=== PATIENT | female | born 1970 | race Caucasian/White ===

== ENCOUNTER → 2017-02-15 | Outpatient (CLI) | payer BC | LOC: WI 08:21 | PROVIDERS: ATTEND Advanced Practice Midwife | DX: N64.4 Mastodynia (principal) | CPT/HCPCS: 76642; G0204; 77066 ==

== ENCOUNTER 2017-05-05 17:35 | Emergency (ER) | payer BC ==
[2017-05-05] MEDS ORDERED: ASPIRIN 81 MG TABLET, CHEWABLE PO ONE (17:57)
--- NOTE | 2017-05-05 17:58 | ER Document Report ---
ED Medical Screen (RME) - General Chief Complaint: Chest Pain > 30 Stated Complaint: CHEST PAIN Time Seen by Provider: 05/05/17 17:56 Notes: The patient is a 47-year-old female, past medical history Tanika's, thyroidectomy, hypertension, hyperlipidemia, presents after she was walking around the mall ~2 shours ago and noticed left upper chest pressure. She felt worsening pain and she was taking a deep breath. Never had this before. Pain has subsided now. PE: Anxious, RRR, CTAB, strong distal pulses I have greeted and performed a rapid initial assessment of this patient. A comprehensive ED assessment and evaluation of the patient, analysis of test results and completion of the medical decision making process will be conducted by additional ED providers. TRAVEL OUTSIDE OF THE [place] IN LAST 30 DAYS: No - Related Data Allergies/Adverse Reactions: nitrofurantoin [From Macrobid] Allergy (Severe, Verified 05/05/17 17:52) Edema nitrofurantoin macrocrystalline [From Macrobid] Allergy (Severe, Verified 17:52) Edema sulfamethoxazole [From Bactrim] Allergy (Severe, Verified 05/05/17 17:52) Edema trimethoprim [From Bactrim] Allergy (Severe, Verified 05/05/17 17:52) Edema Past Medical History - Past Medical History Cardiac Medical History: Reports: Hx Hypertension Pulmonary Medical History: Reports: Hx Pneumonia Denies: Hx Tuberculosis Neurological Medical History: Reports: Hx Migraine Endocrine Medical History: Reports: Hx Hypothyroidism Renal/ Medical History: Denies: Hx Peritoneal Dialysis Musculoskeltal Medical History: 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 Psychiatric Medical History: Reports: Hx Anxiety, Hx Depression Past Surgical History: Reports: Hx Breast Surgery - reduction, Hx Section - x 2, Hx Hysterectomy, Hx Thyroid Surgery - thyroidectomy - Immunizations Immunizations up to date: Yes Hx Diphtheria, Pertussis, Tetanus Vaccination: Yes Physical Exam - Vital signs Vitals: Temp Pulse Resp BP Pulse Ox 98.2 F 87 16 137/95 H 100 05/05/17 17:37 05/05/17 17:37 05/05/17 17:37 05/05/17 17:37 05/05/17 17:37 Course - Vital Signs Vital signs: Temp Pulse Resp BP Pulse Ox 98.2 F 87 16 137/95 H 100 05/05/17 17:37 05/05/17 17:37 05/05/17 17:37 05/05/17 17:37 05/05/17 17:37
[2017-05-05 18:13] LABS: ABSOLUTE BASOPHILS # (AUTO) 0.1 10^3/uL (0.0-0.2); ABSOLUTE EOSINOPHILS # (AUTO) 0.1 10^3/uL (0.0-0.6); ABSOLUTE LYMPHOCYTES (AUTO) 4.1 10^3/uL (0.5-4.7); ABSOLUTE MONOCYTES (AUTO) 0.6 10^3/uL (0.1-1.4); ABSOLUTE NEUT (AUTO) 5.3 10^3/uL (1.7-8.2); BASOPHILS % (AUTO) 0.8 % (0-2); EOSINOPHILS % (AUTO) 0.6 % (0-6); HEMATOCRIT 44.5 % (36.0-47.0); HEMOGLOBIN 15.2 g/dL (12.0-15.5); HGB HCT DIFFERENCE 1.1; LYMPHOCYTES % (AUTO) 40.6 % (13-45); MEAN CORPUSCULAR HEMOGLOBIN 28.3 pg (27.0-33.4); MEAN CORPUSCULAR HGB CONC 34.1 g/dL (32.0-36.0); MEAN CORPUSCULAR VOLUME 83 fl (80-97); MONOCYTES % (AUTO) 5.9 % (3-13); RED BLOOD COUNT 5.36 10^6/uL (3.72-5.28); RED CELL DISTRIBUTION WIDTH 13.2 % (11.5-14.0); SEGMENTED NEUTROPHILS % (AUTO) 52.1 % (42-78); WHITE BLOOD COUNT 10.2 10^3/uL (4.0-10.5)
--- NOTE | 2017-05-05 18:34 | ER Document Report ---
ED Cardiac - General Mode of Arrival: Ambulatory Information source: Patient TRAVEL OUTSIDE OF THE [place] IN LAST 30 DAYS: No - HPI Patient complains to provider of: Chest pain Associated symptoms: Other - See above <ADITHYA MACDONALD - Last Filed: 05/05/17 18:41> <EDGAR QUINTANA - Last Filed: 05/05/17 22:10> - General Chief Complaint: Chest Pain > 30 Stated Complaint: CHEST PAIN Time Seen by Provider: 05/05/17 17:56 Notes: Patient is a 47 year old female, with a past medical history including HTN and thyroidectomy, who presents to the emergency department complaining of chest pain onset a couple of hours ago. Patient states that the chest pain came when she breathed in and lasted for a couple of hours and stopped just before arrival. Patient states that she has been under a lot of stress recently with her family and her health. Patient denies eating just before the pain started. Patient reports she saw her PCP 2 weeks ago for blood work and her thyroid levels are normal. PCP: Marry (ADITHYA MACDONALD) - Related Data Allergies/Adverse Reactions: nitrofurantoin [From Macrobid] Allergy (Severe, Verified 05/05/17 17:52) Edema nitrofurantoin macrocrystalline [From Macrobid] Allergy (Severe, Verified 17:52) Edema sulfamethoxazole [From Bactrim] Allergy (Severe, Verified 05/05/17 17:52) Edema trimethoprim [From Bactrim] Allergy (Severe, Verified 05/05/17 17:52) Edema Past Medical History - General Information source: Patient - Social History Smoking Status: Never Smoker Frequency of alcohol use: None Family History: Reviewed & Not Pertinent, Arthritis, CAD, CVA, Hyperlipidemia, Hypertension, Thyroid Disfunction Patient has suicidal ideation: No Patient has homicidal ideation: No - Past Medical History Cardiac Medical History: Reports: Hx Hypertension Pulmonary Medical History: Reports: Hx Pneumonia Neurological Medical History: Reports: Hx Migraine Endocrine Medical History: Reports: Hx Hypothyroidism Musculoskeltal Medical History: 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 Psychiatric Medical History: Reports: Hx Anxiety, Hx Depression Past Surgical History: Reports: Hx Breast Surgery - reduction, Hx Section - x 2, Hx Hysterectomy, Hx Thyroid Surgery - thyroidectomy - Immunizations Immunizations up to date: Yes Hx Diphtheria, Pertussis, Tetanus Vaccination: Yes <ADITHYA MACDONALD - Last Filed: 05/05/17 18:41> Review of Systems - Review of Systems Constitutional: No symptoms reported EENT: No symptoms reported Cardiovascular: See HPI, Chest pain Respiratory: No symptoms reported Gastrointestinal: No symptoms reported Genitourinary: No symptoms reported Female Genitourinary: No symptoms reported Musculoskeletal: No symptoms reported Skin: No symptoms reported Hematologic/Lymphatic: No symptoms reported Neurological/Psychological: No symptoms reported -: Yes All other systems reviewed and negative <MACDONALDDIANAADITHYA - Last Filed: 05/05/17 18:41> Physical Exam - Vital signs Interpretation: Normal - General General appearance: Appears well, Alert - HEENT Head: Normocephalic, Atraumatic - Respiratory Respiratory status: No respiratory distress Chest status: Nontender Breath sounds: Normal Chest palpation: Normal - Cardiovascular Rhythm: Regular Heart sounds: Normal auscultation Murmur: No - Abdominal Inspection: Normal Distension: No distension Bowel sounds: Normal Tenderness: Nontender Organomegaly: No organomegaly - Extremities General upper extremity: Normal inspection General lower extremity: Normal inspection - Neurological Neuro grossly intact: Yes Cognition: Normal Orientation: AAOx4 Dougherty Coma Scale Eye Opening: Spontaneous Jessika Coma Scale Verbal: Oriented Jessika Coma Scale Motor: Obeys Commands Dougherty Coma Scale Total: 15 Speech: Normal - Psychological Associated symptoms: Normal affect, Normal mood - Skin Skin Temperature: Warm Skin Moisture: Dry Skin Color: Normal <ADITHYA MACDONALD - Last Filed: 05/05/17 18:41> Course - Laboratory Result Diagrams: 05/05/17 18:05 05/05/17 18:05 <MACDONALDADITHYA - Last Filed: 05/05/17 18:41> - Laboratory Result Diagrams: 05/05/17 18:05 05/05/17 18:05 - Diagnostic Test Radiology reviewed: Reports reviewed - EKG Interpretation by Me EKG shows normal: Sinus rhythm Rate: Normal Rhythm: NSR <EDGAR QUINTANA - Last Filed: 05/05/17 22:10> - Re-evaluation Re-evalutation: 05/05/17 22:09 He has had no further pain in the emergency department. EKG within normal limits. No findings on chest x-ray. Troponin negative 2. Patient feels well. She will be discharged home and is to follow-up with her doctor. Patient had her thyroid tested recently. Understands and agrees with plan. Stable for discharge. (EDGAR QUINTANA) - Vital Signs Vital signs: Temp Pulse Resp BP Pulse Ox 98.2 F 87 18 126/73 H 100 05/05/17 17:37 05/05/17 17:37 05/05/17 21:01 05/05/17 21:01 05/05/17 21:01 - Laboratory Laboratory results interpreted by me: 05/05/17 05/05/17 18:05 18:05 RBC 5.36 H Creatine Kinase 190 H Discharge <ADITHYA MACDONALD - Last Filed: 05/05/17 18:41> <EDGAR QUINTANA - Last Filed: 05/05/17 22:10> - Discharge Clinical Impression: Atypical chest pain Condition: Stable Disposition: HOME, SELF-CARE Instructions: Chest Pain of Unclear Cause ([facility]) Forms: Return to Work Referrals: JAGJIT HOOD, CULINARY INSTRUCTOR-C [Primary Care Provider] - Follow up in 3-5 days Scribe Attestation: 05/05/17 22:10 I personally performed the services described in the documentation, reviewed and edited the documentation which was dictated to the scribe in my presence, and it accurately records my words and actions. (EDGAR QUINTANA) Scribe Documentation - Scribe Written by Coy:: coy Nolasco, 05/05/17, 1842 acting as scribe for :: Joon <ADITHYA MACDONALD - Last Filed: 05/05/17 18:41>
[2017-05-05 18:38] LABS: ALANINE AMINOTRANSFERASE 36 U/L (9-52); ALBUMIN 4.4 g/dL (3.5-5.0); ALKALINE PHOSPHATASE 60 U/L (38-126); ANION GAP 10 (5-19); ASPARTATE AMINO TRANSFERASE 26 U/L (14-36); BILIRUBIN,DIRECT 0.2 mg/dL (0.0-0.4); BILIRUBIN,TOTAL 0.5 mg/dL (0.2-1.3); BLOOD UREA NITROGEN 14 mg/dL (7-20); CALCIUM 9.9 mg/dL (8.4-10.2); CARBON DIOXIDE 29 mmol/L (22-30); CHLORIDE 99 mmol/L (98-107); CREATINE KINASE 190 U/L (30-135); GLUCOSE 93 mg/dL (75-110); POTASSIUM 3.7 mmol/L (3.6-5.0); SODIUM 138.3 mmol/L (137-145); TOTAL PROTEIN 7.3 g/dL (6.3-8.2)
--- NOTE | 2017-05-05 18:48 | RADIOLOGY REPORT (SQ) ---
EXAM DESCRIPTION: CHEST PA/LAT COMPLETED DATE/TIME: 05/05/2017 6:15 pm REASON FOR STUDY: chest pain COMPARISON: 11/29/2014 EXAM PARAMETERS: NUMBER OF VIEWS: two views TECHNIQUE: Digital Frontal and Lateral radiographic views of the chest acquired. RADIATION DOSE: NA LIMITATIONS: none FINDINGS: LUNGS AND PLEURA: No opacities, masses or pneumothorax. No pleural effusion. MEDIASTINUM AND HILAR STRUCTURES: No masses or contour abnormalities. HEART AND VASCULAR STRUCTURES: Heart normal size. No evidence for failure. BONES: No acute findings. HARDWARE: None in the chest. OTHER: No other significant finding. IMPRESSION: NO SIGNIFICANT RADIOGRAPHIC FINDING IN THE CHEST. TECHNICAL DOCUMENTATION: JOB ID: [id number] [employer]- All Rights Reserved
[2017-05-05 18:50] LABS: TROPONIN I < 0.012 ng/mL
[2017-05-05 21:37] VITALS: BP 126/73
--- NOTE | 2017-05-06 07:15 | EKG REPORT ---
SEVERITY:- NORMAL ECG - SINUS RHYTHM : Confirmed by: Luanne Burris MD 06-May-2017 07:14:54
== END 2017-05-05 21:37 | disposition home or self-care (01) ==
LOC: ER 17:35
DX: R07.89 Other chest pain (principal); I10 Essential (primary) hypertension; E89.0 Postprocedural hypothyroidism; Z88.1 Allergy status to other antibiotic agents; Z87.01 Personal history of pneumonia (recurrent); Z82.49 Family history of ischemic heart disease and other diseases of the circulatory system
CPT/HCPCS: 36415; 71020; 80053; 82550; 83880; 84484; 85025; 93005; 93010; 99285

== ENCOUNTER 2017-07-23 19:15 | Emergency (ER) | payer BC ==
[2017-07-23] MEDS ORDERED: DIPHENHYDRAMINE HCL 50 MG CAPSULE PO ONE (19:48)
[2017-07-23] MEDS ORDERED: FAMOTIDINE 20 MG TABLET PO ONE (19:48)
[2017-07-23] MEDS ORDERED: PREDNISONE 20 MG TABLET PO ONE (19:48)
--- NOTE | 2017-07-23 19:49 | ER Document Report ---
ED General - General Chief Complaint: Allergic Reaction Stated Complaint: DIFFICULTY BREATHING Time Seen by Provider: 07/23/17 19:48 Mode of Arrival: Ambulatory Information source: Patient Notes: 47-year-old female presents with complaints of allergic reaction. Patient notes she ate cherries 1 hour ago noted a rash on her right forearm and has had some difficulty breathing since. Patient denies any difficulty swallowing has had allergic reaction of the past and admits to a history of anxiety TRAVEL OUTSIDE OF THE [place] IN LAST 30 DAYS: No - HPI Onset: Just prior to arrival Onset/Duration: Sudden Quality of pain: No pain Severity: Mild Pain Level: Denies Associated symptoms: Other Exacerbated by: Food Relieved by: Denies Similar symptoms previously: Yes Recently seen / treated by doctor: No - Related Data Allergies/Adverse Reactions: nitrofurantoin [From Macrobid] Allergy (Severe, Verified 05/05/17 17:52) Edema nitrofurantoin macrocrystalline [From Macrobid] Allergy (Severe, Verified 17:52) Edema sulfamethoxazole [From Bactrim] Allergy (Severe, Verified 05/05/17 17:52) Edema trimethoprim [From Bactrim] Allergy (Severe, Verified 05/05/17 17:52) Edema Past Medical History - Social History Smoking Status: Never Smoker Cigarette use (# per day): No Chew tobacco use (# tins/day): No Smoking Education Provided: No Family History: Reviewed & Not Pertinent, Arthritis, CAD, CVA, Hyperlipidemia, Hypertension, Thyroid Disfunction Patient has suicidal ideation: No Patient has homicidal ideation: No - Past Medical History Cardiac Medical History: Reports: Hx Hypertension Pulmonary Medical History: Reports: Hx Pneumonia Denies: Hx Tuberculosis Neurological Medical History: Reports: Hx Migraine Endocrine Medical History: Reports: Hx Hypothyroidism Renal/ Medical History: Denies: Hx Peritoneal Dialysis Musculoskeltal Medical History: 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 Denies recent illness. EENT: Admits to difficulty breathing CARDIOVASCULAR: Denies chest pain. Denies palpitations or racing or irregular heart beat. Denies ankle edema. RESPIRATORY: Denies cough, cold, or chest congestion. Denies shortness of breath, difficulty breathing, or wheezing. GASTROINTESTINAL: Denies abdominal pain or distention. Denies nausea, vomiting , or diarrhea. Denies blood in vomitus, stools, or per rectum. Denies black, tarry stools. Denies constipation. GENITOURINARY: Denies difficulty urinating, painful urination, burning, frequency, blood in urine, or discharge. FEMALE GENITOURINARY: Denies vaginal bleeding, heavy or abnormal periods, irregular periods. Denies vaginal discharge or odor. MUSCULOSKELETAL: Denies back or neck pain or stiffness. Denies joint pain or swelling. SKIN: Admits to rash HEMATOLOGIC : Denies easy bruising or bleeding. LYMPHATIC: Denies swollen, enlarged glands. NEUROLOGICAL: Denies confusion or altered mental status. Denies passing out or loss of consciousness. Denies dizziness or lightheadedness. Denies headache. Denies weakness or paralysis or loss of use of either side. Denies problems with gait or speech. Denies sensory loss, numbness, or tingling. Denies seizures. PSYCHIATRIC: Denies anxiety or stress. Denies depression, suicidal ideation, or homicidal ideation. ALL OTHER SYSTEMS REVIEWED AND NEGATIVE. PHYSICAL EXAMINATION: GENERAL: Well-appearing, well-nourished and in no acute distress. HEAD: Atraumatic, normocephalic. EYES: Pupils equal round and reactive to light, extraocular movements intact, conjunctiva are normal. ENT: Nares patent, oropharynx clear without exudates. Moist mucous membranes. NECK: Normal range of motion, supple without lymphadenopathy LUNGS: Breath sounds clear to auscultation bilaterally and equal. No wheezes rales or rhonchi. HEART: Regular rate and rhythm without murmurs ABDOMEN: Soft, nontender, nondistended abdomen. No guarding, no rebound. No masses appreciated. Female : deferred Musculoskeletal: Normal range of motion, no pitting or edema. No cyanosis. NEUROLOGICAL: Cranial nerves grossly intact. Normal speech, normal gait. Normal sensory, motor exams PSYCH: Normal mood, normal affect. SKIN: Generalized urticarial rash noted on right forearm Dictation was performed using [employer] recognition software Physical Exam - Vital signs Vitals: Temp Pulse Resp BP Pulse Ox 97.8 F 107 H 20 143/82 H 98 07/23/17 19:21 07/23/17 19:21 07/23/17 19:21 07/23/17 19:21 07/23/17 19:21 Course - Re-evaluation Re-evalutation: 07/23/17 19:54 There is no stridor there is no airway compromise, there is no tongue swelling lip swelling. There is no wheezing. Patient will be treated for her allergic reaction symptoms Patient instructed on risks and benefits of medications prescribed. Denies any concerns regarding such. - Vital Signs Vital signs: Temp Pulse Resp BP Pulse Ox 97.8 F 107 H 20 143/82 H 98 07/23/17 19:21 07/23/17 19:21 07/23/17 19:21 07/23/17 19:21 07/23/17 19:21 Discharge - Discharge Clinical Impression: Allergic reaction Qualifiers: Encounter type: initial encounter Qualified Code(s): T78.40XA - Allergy, unspecified, initial encounter Condition: Stable Disposition: HOME, SELF-CARE Instructions: Acute Allergic Reaction ([facility]) Prescriptions: Diphenhydramine HCl [Benadryl 50 mg Capsule] 1 cap PO Q6 PRN #20 capsule PRN Reason: Epinephrine [Epipen] 0.3 mg IM ASDIR PRN #1 auto.injct PRN Reason: Famotidine [Pepcid 20 mg Tablet] 20 mg PO DAILY #5 tablet Prednisone [Deltasone 20 mg Tablet] 3 tab PO DAILY 5 Days tablet Prednisone 60 mg PO DAILY #15 tablet Referrals: JOSUÉ KEN MD [NO LOCAL MD] - Follow up tomorrow
[2017-07-23 20:26] VITALS: BP 135/76
== END 2017-07-23 20:26 | disposition home or self-care (01) ==
LOC: ER 19:15
DX: L50.0 Allergic urticaria (principal); R06.00 Dyspnea, unspecified; I10 Essential (primary) hypertension; Z88.1 Allergy status to other antibiotic agents
CPT/HCPCS: 99283; J7512

== ENCOUNTER 2017-07-25 14:56 | Emergency (ER) | payer BC ==
[2017-07-25 15:07] VITALS: BP 155/89
--- NOTE | 2017-07-25 15:35 | ER Document Report ---
HPI - HPI Onset: This morning Onset/Duration: Gradual Quality of pain: No pain Pain Level: 0 Associated Symptoms: None Similar symptoms previously: Yes Recently seen / treated by doctor: Yes - here Notes: Patient is a 47-year-old female who was seen here 2 days ago for an allergic reaction to cherries. Patient was started on prednisone Benadryl and Zantac for her symptoms. Yesterday, patient states she developed a diffuse red rash on her upper chest, both arms, and face which was different than the rash she had the day before. Patient denies any associated difficulty breathing, difficulty swallowing, angioedema. Patient did not take her prednisone today as she felt maybe that was the cause of her rash. Patient has not had any other exposure to allergens that she is aware of. - CARDIOVASCULAR Cardiovascular: DENIES: Chest pain - REPRODUCTIVE Reproductive: DENIES: : - DERM Skin Color: Metzger Past Medical History - General Information source: Patient - Social History Smoking Status: Never Smoker Chew tobacco use (# tins/day): No Frequency of alcohol use: Occasional Drug Abuse: None Family History: Reviewed & Not Pertinent, Arthritis, CAD, CVA, Hyperlipidemia, Hypertension, Thyroid Disfunction Patient has suicidal ideation: No Patient has homicidal ideation: No - Past Medical History Cardiac Medical History: Reports: Hx Hypertension Pulmonary Medical History: Reports: Hx Pneumonia Denies: Hx Tuberculosis Neurological Medical History: Reports: Hx Migraine Endocrine Medical History: Reports: Hx Hypothyroidism Renal/ Medical History: Denies: Hx Peritoneal Dialysis Musculoskeltal Medical History: 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 IN LAST 30 DAYS: No - HEENT HEENT: Atraumatic, Normocephalic - NECK Neck: Normal Inspection - RESPIRATORY Respiratory: Breath Sounds Normal, No Respiratory Distress. negative: Wheezing O2 Sat by Pulse Oximetry: 97 - CARDIOVASCULAR Cardiovascular: Regular Rate, Regular Rhythm - GI/ABDOMEN Gastrointestinal: Abdomen Soft - MUSCULOSKELETAL/EXTREMETIES Musculoskeletal/Extremeties: MAEW, FROM, Non-Tender - NEURO Level of Consciousness: Awake, Alert, Appropriate - DERM Integumentary: Warm, Dry Notes: Erythematous rash noted to both arms, the upper chest, and the face. The rash does not appear to be toxic in nature. No specific urticaria seen. Course - Re-evaluation Re-evalutation: 07/25/17 15:34 Etiology of patient's rash is unclear. She is breathing comfortably, no angioedema, normal posterior oropharynx. Recommend continuing her prednisone, Benadryl, and H2 falguni. Discussed need to follow-up with primary care provider. 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 - Vital Signs Vital signs: Temp Pulse Resp BP Pulse Ox 97.9 F 84 20 155/89 H 97 07/25/17 15:04 07/25/17 15:04 07/25/17 15:04 07/25/17 15:04 07/25/17 15:04 Discharge - Discharge Clinical Impression: Rash Condition: Good Disposition: HOME, SELF-CARE Instructions: Acute Allergic Reaction ([facility]) Additional Instructions: Continue on the prednisone, Benadryl, and Pepcid. Follow-up with your primary care doctor tomorrow. Return to the emergency department if worse or for any other problems.
== END 2017-07-25 15:38 | disposition home or self-care (01) ==
LOC: ER 14:56
DX: R21 Rash and other nonspecific skin eruption (principal); I10 Essential (primary) hypertension; Z90.710 Acquired absence of both cervix and uterus
CPT/HCPCS: 99283

== ENCOUNTER → 2018-04-15 | Outpatient (CLI) | payer BC ==
--- NOTE | 2018-04-15 09:47 | WOMENS IMAGING REPORT ---
EXAM DESCRIPTION: 3D DX MAMMO BILAT; U/S BREAST UNILAT LIMITED COMPLETED DATE/TIME: 04/15/2018 8:20 am; 04/15/2018 8:52 am REASON FOR STUDY: BREAST LUMP; RT BREAST LUMP N63.0 UNSPECIFIED LUMP IN UNSPECIFIED BREAST N64.52 NIPPLE DISCHARGE COMPARISON: 02/15/2017, 11/02/2013 TECHNIQUE: Standard craniocaudal and mediolateral oblique views of each breast recorded using digita l acquisition and breast tomosynthesis. Additional right breast 90 mediolateral view. Additional left breast 90 mediolateral view. LIMITATIONS: None. FINDINGS: RIGHT BREAST MASSES: No suspicious masses. CALCIFICATIONS: In the right retroareolar region laterally, 9 to 10 o'clock position, there is a dila maged duct with associated microcalcifications. ARCHITECTURAL DISTORTION: None. DEVELOPING DENSITY: None. ASYMMETRY: None noted. OTHER: Prominent right retroareolar ducts are otherwise stable compared to previous studies. Postsur gical changes from bilateral breast reduction. LEFT BREAST MASSES: No suspicious masses. CALCIFICATIONS: No new or suspicious calcifications. ARCHITECTURAL DISTORTION: None. DEVELOPING DENSITY: None. ASYMMETRY: None noted. OTHER: Prominent left retroareolar ducts are stable compared to previous studies. Postsurgical mc es from bilateral breast reduction Read with the assistance of CAD: .[facility] - R2 C[employer]ova Version 1.3 .[facility] - R2 Cenova Version 1.3 .[facility] - R2 Cenova Version 2.4 .[facility] - R2 Cenova Version 2.4 .[facility] - R2 Mental Health Social Worker Version 9.2 Right breast ultrasound: In the right breast patient indicates a palpable abnormality periareolar region 9 to 10 o'clock posit ion. Ultrasound of this area demonstrates a dilated duct in the area palpable abnormalities with adj acent anechoic cyst, 5 to 6 mm in size. IMPRESSION: Patient has bilateral retroareolar ducts with calcifications. On the right side, palpab le abnormality correlates with a duct with calcifications which is slightly more prominent than on pr evious studies. Because of a history of bilateral nipple discharge, breast MRI is recommended for follow-up. BREAST DENSITY: c. The breasts are heterogeneously dense, which may obscure small masses. BIRAD: 0 Incomplete: Needs additional imaging evaluation with bilateral breast MRI. RECOMMENDATION: RECOMMENDED FOLLOW UP: Bilateral breast MRI SPECIFIC INTERVENTION/IMAGING/CONSULTATION RECOMMENDED:Bilateral breast MRI COMMUNICATION:Patient notified by letter COMMENT: The patient has been notified of the results by letter per SA requirements. Additional no tification policies are in place for contacting patient with suspicious or incomplete findings. Quality ID #[id number]: The [employer] recommends an annual screening mammogram for women aged 40 years or over. This facility utilizes a reminder system to ensure that all patients receive reminder letters, and/or direct phone calls for appointments. This includes reminders for routine scr eening mammograms, diagnostic mammograms, or other Breast Imaging Interventions when appropriate. Th is patient will be placed in the appropriate reminder system. The [employer] (ACR) has developed recommendations for screening MRI of the breast s in certain patient populations, to be used in conjunction with mammography. Breast MRI surveillanc e may be appropriate for women with more than 20% lifetime risk of developing breast cancer as deter mined by genetic testing, significant family history of the disease, or history of mantle radiation f or Hodgkins Disease. ACR Practice Guidelines 2008. DBT Technology DBT is a type of tomographic mammography. With conventional mammography, overlapping breast tissue ma y make lesions difficult to detect, even with good compression. DBT uses an x-ray tube that rotates a round the breast, taking images at different angles. These images are then combined to create thin sl ices of the breast that the radiologist can view as a 3D reconstruction. The [employer] unit can perform full-field digital mammograms (2D imaging); or DBT (3D imaging); or both, in a combination mode that quickly performs both the mammogram and the tomosynthesis scan while the breast is still compressed. PQRS 6045F: Fluoroscopic imaging is not utilized for breast tomosynthesis. TECHNICAL DOCUMENTATION: FINDING NUMBER: (1) ASSESSMENT: (1) JOB ID: [id number] [employer]- All Rights Reserved Reading location - IP/workstation name: [email or web address]
--- NOTE | 2018-04-15 09:47 | WOMENS IMAGING REPORT ---
EXAM DESCRIPTION: 3D DX MAMMO BILAT; U/S BREAST UNILAT LIMITED COMPLETED DATE/TIME: 04/15/2018 8:20 am; 04/15/2018 8:52 am REASON FOR STUDY: BREAST LUMP; RT BREAST LUMP N63.0 UNSPECIFIED LUMP IN UNSPECIFIED BREAST N64.52 NIPPLE DISCHARGE COMPARISON: 02/15/2017, 11/02/2013 TECHNIQUE: Standard craniocaudal and mediolateral oblique views of each breast recorded using digita l acquisition and breast tomosynthesis. Additional right breast 90 mediolateral view. Additional left breast 90 mediolateral view. LIMITATIONS: None. FINDINGS: RIGHT BREAST MASSES: No suspicious masses. CALCIFICATIONS: In the right retroareolar region laterally, 9 to 10 o'clock position, there is a dila maged duct with associated microcalcifications. ARCHITECTURAL DISTORTION: None. DEVELOPING DENSITY: None. ASYMMETRY: None noted. OTHER: Prominent right retroareolar ducts are otherwise stable compared to previous studies. Postsur gical changes from bilateral breast reduction. LEFT BREAST MASSES: No suspicious masses. CALCIFICATIONS: No new or suspicious calcifications. ARCHITECTURAL DISTORTION: None. DEVELOPING DENSITY: None. ASYMMETRY: None noted. OTHER: Prominent left retroareolar ducts are stable compared to previous studies. Postsurgical mc es from bilateral breast reduction Read with the assistance of CAD: .[facility] - R2 Cenova Version 1.3 .[facility] - R2 Cenova Version 1.3 .[facility] - R2 Cenova Version 2.[address] - R2 Cenova Version 2.4 .[facility] - R2 [employer] Warfare Technician Version 9.2 Right breast ultrasound: In the right breast patient indicates a palpable abnormality periareolar region 9 to 10 o'clock posit ion. Ultrasound of this area demonstrates a dilated duct in the area palpable abnormalities with adj acent anechoic cyst, 5 to 6 mm in size. IMPRESSION: Patient has bilateral retroareolar ducts with calcifications. On the right side, palpab le abnormality correlates with a duct with calcifications which is slightly more prominent than on pr evious studies. Because of a history of bilateral nipple discharge, breast MRI is recommended for follow-up. BREAST DENSITY: c. The breasts are heterogeneously dense, which may obscure small masses. BIRAD: 0 Incomplete: Needs additional imaging evaluation with bilateral breast MRI. RECOMMENDATION: RECOMMENDED FOLLOW UP: Bilateral breast MRI SPECIFIC INTERVENTION/IMAGING/CONSULTATION RECOMMENDED:Bilateral breast MRI COMMUNICATION:Patient notified by letter COMMENT: The patient has been notified of the results by letter per SA requirements. Additional no tification policies are in place for contacting patient with suspicious or incomplete findings. Quality ID #[id number]: The [employer] recommends an annual screening mammogram for women aged 40 years or over. This facility utilizes a reminder system to ensure that all patients receive reminder letters, and/or direct phone calls for appointments. This includes reminders for routine scr eening mammograms, diagnostic mammograms, or other Breast Imaging Interventions when appropriate. Th is patient will be placed in the appropriate reminder system. The [employer] (ACR) has developed recommendations for screening MRI of the breast s in certain patient populations, to be used in conjunction with mammography. Breast MRI surveillanc e may be appropriate for women with more than 20% lifetime risk of developing breast cancer as deter mined by genetic testing, significant family history of the disease, or history of mantle radiation f or Hodgkins Disease. ACR Practice Guidelines 2008. DBT Technology DBT is a type of tomographic mammography. With conventional mammography, overlapping breast tissue ma y make lesions difficult to detect, even with good compression. DBT uses an x-ray tube that rotates a round the breast, taking images at different angles. These images are then combined to create thin sl ices of the breast that the radiologist can view as a 3D reconstruction. The [employer] unit can perform full-field digital mammograms (2D imaging); or DBT (3D imaging); or both, in a combination mode that quickly performs both the mammogram and the tomosynthesis scan while the breast is still compressed. PQRS 6045F: Fluoroscopic imaging is not utilized for breast tomosynthesis. TECHNICAL DOCUMENTATION: FINDING NUMBER: (1) ASSESSMENT: (1) JOB ID: [id number] [employer]- All Rights Reserved Reading location - IP/workstation name: [email or web address]
== END ==
LOC: WI 07:45
PROVIDERS: ATTEND Advanced Practice Midwife
DX: N60.01 Solitary cyst of right breast (principal); N64.52 Nipple discharge
CPT/HCPCS: 76642; 77066; G0279; 77062

== ENCOUNTER 2018-06-15 10:33 | Emergency (ER) | payer BC ==
--- NOTE | 2018-06-15 11:08 | ER Document Report ---
ED Extremity Problem, Lower - General Chief Complaint: Ankle Pain Stated Complaint: ANKLE PAIN Time Seen by Provider: 06/15/18 10:57 Notes: 48-year-old female with a history of polycythemia complains of warm sensations to her right lateral ankle and swelling to the veins in that area 1 week. Patient denies any trauma, prolonged travel or recent surgeries. Patient works as a hairdresser and admits to prolonged standing. Patient is concerned about a blood clot. Patient denies any chest pain or shortness of breath TRAVEL OUTSIDE OF THE [place] IN LAST 30 DAYS: No - HPI Patient complains to provider of: Other - Warm sensations to right ankle Location: Ankle Occurred: Last week Quality of pain: Achy Recent injury: No - Related Data Allergies/Adverse Reactions: nitrofurantoin [From Macrobid] Allergy (Severe, Verified 06/15/18 10:34) Edema nitrofurantoin macrocrystalline [From Macrobid] Allergy (Severe, Verified 10:34) Edema sulfamethoxazole [From Bactrim] Allergy (Severe, Verified 06/15/18 10:34) Edema trimethoprim [From Bactrim] Allergy (Severe, Verified 06/15/18 10:34) Edema Past Medical History - General Information source: Patient - Social History Smoking Status: Never Smoker Frequency of alcohol use: Rare Drug Abuse: None Lives with: Family Family History: Reviewed & Not Pertinent, Arthritis, CAD, CVA, Hyperlipidemia, Hypertension, Thyroid Disfunction Patient has suicidal ideation: No Patient has homicidal ideation: No - Past Medical History Cardiac Medical History: Reports: Hx Hypertension Pulmonary Medical History: Reports: Hx Pneumonia Denies: Hx Tuberculosis Neurological Medical History: Reports: Hx Migraine Endocrine Medical History: Reports: Hx Hypothyroidism Renal/ Medical History: Denies: Hx Peritoneal Dialysis Musculoskeletal Medical History: 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 Psychiatric Medical History: Reports: Hx Anxiety, Hx Depression Past Surgical History: Reports: Hx Breast Surgery - reduction, Hx Section - x 2, Hx Hysterectomy, Hx Thyroid Surgery - thyroidectomy - Immunizations Immunizations up to date: Yes Hx Diphtheria, Pertussis, Tetanus Vaccination: Yes Review of Systems - Review of Systems Constitutional: No symptoms reported EENT: No symptoms reported Cardiovascular: No symptoms reported Respiratory: No symptoms reported Gastrointestinal: No symptoms reported Genitourinary: No symptoms reported Female Genitourinary: No symptoms reported Musculoskeletal: No symptoms reported Skin: No symptoms reported Hematologic/Lymphatic: No symptoms reported Neurological/Psychological: No symptoms reported Physical Exam - Vital signs Vitals: Temp Pulse Resp BP Pulse Ox 98.3 F 112 H 14 135/96 H 97 06/15/18 10:38 06/15/18 10:38 06/15/18 10:38 06/15/18 10:38 06/15/18 10:38 Interpretation: Normal - General General appearance: Appears well, Alert - HEENT Head: Normocephalic, Atraumatic Eyes: Normal Pupils: PERRL - Respiratory Respiratory status: No respiratory distress Chest status: Nontender Breath sounds: Normal Chest palpation: Normal - Cardiovascular Rhythm: Regular Heart sounds: Normal auscultation Murmur: No - Abdominal Inspection: Normal Distension: No distension Bowel sounds: Normal Tenderness: Nontender Organomegaly: No organomegaly - Back Back: Normal, Nontender - Extremities General upper extremity: Normal inspection, Nontender, Normal color, Normal ROM , Normal temperature General lower extremity: Normal inspection, Nontender, Normal color, Normal ROM , Normal temperature, Normal weight bearing. No: Diane's sign Knee: Normal, Nontender Calf: Normal, Nontender Ankle: Other - Right lateral malleolus with no edema, ecchymosis, erythema or warmth. Few engorged veins noted to right lateral foot but these are nontender. Strong pedal pulse to right foot. Foot is warm to touch. Negative Homans with right calf - Neurological Neuro grossly intact: Yes Cognition: Normal Orientation: AAOx4 Jessika Coma Scale Eye Opening: Spontaneous [place] Coma Scale Verbal: Oriented [place] Coma Scale Motor: Obeys Commands [place] Coma Scale Total: 15 Speech: Normal Motor strength normal: LUE, RUE, LLE, RLE Sensory: Normal - Psychological Associated symptoms: Normal affect, Normal mood - Skin Skin Temperature: Warm Skin Moisture: Dry Skin Color: Normal Course - Re-evaluation Re-evalutation: 06/15/18 12:29 Venous Doppler was negative for DVT. These results were reviewed with the patient. I recommended compression stockings for patient while working and consider antifatigue mat to stand on while at work. Home care, primary care follow-up and ED return precautions were discussed with patient. Patient is agreeable with plan and stable for discharge - Vital Signs Vital signs: Temp Pulse Resp BP Pulse Ox 98.3 F 112 H 14 135/96 H 97 06/15/18 10:38 06/15/18 10:38 06/15/18 10:38 06/15/18 10:38 06/15/18 10:38 Discharge - Discharge Clinical Impression: Right ankle pain Qualifiers: Chronicity: acute Qualified Code(s): M25.571 - Pain in right ankle and joints of right foot Condition: Stable Disposition: HOME, SELF-CARE Instructions: Ice & Elevation ([facility]) Additional Instructions: Your ankle pain is most likely secondary to your prolonged standing and increased venous pressure Consider compression socks while working Follow-up with your primary care if symptoms persist or worsen Referrals: JOSSELYN HAHN MD [ACTIVE STAFF] - Follow up as needed
[2018-06-15 12:31] VITALS: BP 138/72
--- NOTE | 2018-06-21 16:18 | RADIOLOGY REPORT (SQ) ---
EXAM DESCRIPTION: VENOUS UNILATERAL LOWER COMPLETED DATE/TIME: 06/15/2018 12:35 pm REASON FOR STUDY: right lower leg pain COMPARISON: None. TECHNIQUE: Dynamic and static singh scale and color images acquired of the right leg venous system. S elected spectral images acquired with additional compression and augmentation maneuvers. The contrala teral common femoral vein and saphenofemoral junction were also imaged. Images stored on PACS. LIMITATIONS: None. FINDINGS: COMMON FEMORAL: Normal phasicity, compression and augmentation. No visualized echogenic ma terial on singh scale. No defects on color images. FEMORAL: Normal compression and augmentation. No visualized echogenic material on singh scale. No defe cts on color images. POPLITEAL: Normal compression, augmentation. No visualized echogenic material on singh scale. No defec ts on color images. CALF VESSELS: Normal compression, augmentation. No visualized echogenic material on singh scale. No de fects on color images. GSV and SSV: Normal compression, augmentation. No visualized echogenic material on singh scale. No def ects on color images. ANY DEEP VENOUS INSUFFICIENCY: Not evaluated. ANY EVIDENCE OF POPLITEAL CYST: No. OTHER: No other significant finding. CONTRALATERAL COMMON FEMORAL VEIN AND SAPHENOFEMORAL JUNCTION: Normal phasicity, compression and augmentation. No visualized echogenic material on singh scale. No de fects on color images. IMPRESSION: NO EVIDENCE DVT OR SVT IN THE RIGHT LEG. TECHNICAL DOCUMENTATION: JOB ID: [id number] [employer]- All Rights Reserved Reading location - IP/workstation name: [facility]
== END 2018-06-15 12:35 | disposition home or self-care (01) ==
LOC: ER 10:33
DX: M25.571 Pain in right ankle and joints of right foot (principal); I10 Essential (primary) hypertension; Z88.3 Allergy status to other anti-infective agents; Z90.710 Acquired absence of both cervix and uterus
CPT/HCPCS: 93971; 99283

== ENCOUNTER 2018-06-15 22:02 | Emergency (ER) | payer BC ==
[2018-06-15 22:09] VITALS: BP 140/75
== END 2018-06-16 00:45 | disposition left against medical advice (07) ==
LOC: ER 22:02
DX: Z53.21 Procedure and treatment not carried out due to patient leaving prior to being seen by health care provider (principal)

== ENCOUNTER → 2019-09-25 | Outpatient (CLI) | payer BC ==
--- NOTE | 2019-09-26 08:30 | WOMENS IMAGING REPORT ---
EXAM DESCRIPTION: BILAT SCREENING MAMMO W/CAD COMPLETED DATE/TIME: 09/25/2019 2:44 pm REASON FOR STUDY: Z12.31 ENCOUNTER FOR SCREENING MAMMOGRAM FOR MALIGNANT NEOPLASM OF BREAST Z12.31 ENCNTR SCREEN MAMMOGRAM FOR MALIGNANT NEOPLASM OF RONALD COMPARISON: 2016, 2017 EXAM PARAMETERS: Standard craniocaudal and mediolateral oblique views of each breast recorded using digital acquisition. Read with the assistance of CAD. .[facility] - [employer] Examiner Version 9.2 LIMITATIONS: None. FINDINGS: No suspicious masses, suspicious calcifications or architectural distortion. No areas of c oncern. IMPRESSION: Negative MAMMOGRAM. BIRADS 1 BREAST DENSITY: b. There are scattered areas of fibroglandular density. BIRAD: ASSESSMENT: 1 NEGATIVE RECOMMENDATION: ROUTINE SCREENING COMMENT: The patient has been notified of the results by letter per MQSA requirements. Additional no tification policies are in place for contacting patient with suspicious or incomplete findings. Quality ID #[id number]: The [employer] recommends an annual screening mammogram for women aged 40 years or over. This facility utilizes a reminder system to ensure that all patients receive reminder letters, and/or direct phone calls for appointments. This includes reminders for routine scr eening mammograms, diagnostic mammograms, or other Breast Imaging Interventions when appropriate. Th is patient will be placed in the appropriate reminder system. TECHNICAL DOCUMENTATION: FINDING NUMBER: (1) ASSESSMENT: (1) JOB ID: [id number] [employer]- All Rights Reserved Reading location - IP/workstation name: [email or web address]
== END ==
LOC: WI 14:29
PROVIDERS: ATTEND Surgery
DX: Z12.31 Encounter for screening mammogram for malignant neoplasm of breast (principal)
CPT/HCPCS: 77067

== ENCOUNTER 2020-08-29 22:44 | Emergency (ER) | payer BC ==
[2020-08-29 23:01] VITALS: BP 132/71
--- NOTE | 2020-08-29 23:14 | ER Document Report ---
ED Medical Screen (RME) - General Chief Complaint: Chest Pain Stated Complaint: CHEST PAIN/MUSCLE CRAMP LEG Time Seen by Provider: 08/29/20 23:12 Primary Care Provider: JOSSELYN HAHN MD [Primary Care Provider] - Follow up as needed Information source: Patient Notes: Patient presents complaining of muscle cramps in the right leg when jogging. Patient states today around 6 PM she was jogging and had an episode of chest pain that just lasted momentarily. Patient reports nausea without vomiting. No cough or shortness of breath. I have greeted and performed a rapid initial assessment of this patient. A comprehensive ED assessment and evaluation of the patient, analysis of test results and completion of the medical decision making process will be conducted by additional ED providers. TRAVEL OUTSIDE OF THE [place] IN LAST 30 DAYS: No - Related Data Allergies/Adverse Reactions: nitrofurantoin [From Macrobid] Allergy (Severe, Verified 06/15/18 10:34) Edema nitrofurantoin macrocrystalline [From Macrobid] Allergy (Severe, Verified 06/15/18 10:34) Edema sulfamethoxazole [From Bactrim] Allergy (Severe, Verified 06/15/18 10:34) Edema trimethoprim [From Bactrim] Allergy (Severe, Verified 06/15/18 10:34) Edema Past Medical History - Social History Frequency of alcohol use: Occasional Drug Abuse: None - Past Medical History Cardiac Medical History: Reports: Hx Hypertension Pulmonary Medical History: Reports: Hx Pneumonia Denies: Hx Tuberculosis Neurological Medical History: Reports: Hx Migraine Endocrine Medical History: Reports: Hx Hypothyroidism Renal/ Medical History: Denies: Hx Peritoneal Dialysis Musculoskeltal Medical History: 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 Psychiatric Medical History: Reports: Hx Anxiety, Hx Depression Past Surgical History: Reports: Hx Breast Surgery - reduction, Hx Section - x 2, Hx Hysterectomy, Hx Thyroid Surgery - thyroidectomy - Immunizations Immunizations up to date: Yes Hx Diphtheria, Pertussis, Tetanus Vaccination: Yes Physical Exam - Vital signs Vitals: Temp Pulse Resp BP Pulse Ox 98.0 F 86 12 132/71 H 98 08/29/20 22:57 08/29/20 22:57 08/29/20 22:57 08/29/20 22:57 08/29/20 22:57 - Respiratory Respiratory status: No respiratory distress Chest status: Nontender Breath sounds: Normal - Cardiovascular Rhythm: Regular Heart sounds: S1 appreciated, S2 appreciated Course - Vital Signs Vital signs: Temp Pulse Resp BP Pulse Ox 98.0 F 86 12 132/71 H 98 08/29/20 22:57 08/29/20 22:57 08/29/20 22:57 08/29/20 22:57 08/29/20 22:57 Doctor's Discharge - Discharge Referrals: JOSSELYN HAHN MD [Primary Care Provider] - Follow up as needed
--- NOTE | 2020-08-29 23:47 | RADIOLOGY REPORT (SQ) ---
EXAM DESCRIPTION: XR CHEST 1 VIEW COMPLETED DATE/TME: 08/29/2020 23:12 CLINICAL HISTORY: 50 years Female cp COMPARISON: 05/05/2017. FINDINGS: The cardiomediastinal silhouette appears unremarkable. No consolidating infiltrates or pleural effusions. No pneumothorax. IMPRESSION: No acute abnormality is identified.
[2020-08-30 00:14] LABS: ABSOLUTE BASOPHILS # (AUTO) 0.1 10^3/uL (0.0-0.2); ABSOLUTE EOSINOPHILS # (AUTO) 0.1 10^3/uL (0.0-0.6); ABSOLUTE LYMPHOCYTES (AUTO) 3.2 10^3/uL (0.5-4.7); ABSOLUTE MONOCYTES (AUTO) 0.6 10^3/uL (0.1-1.4); EOSINOPHILS % (AUTO) 0.7 % (0-6); HEMATOCRIT 44.2 % (36.0-47.0); HEMOGLOBIN 15.3 g/dL (12.0-15.5); LYMPHOCYTES % (AUTO) 40.5 % (13-45); MEAN CORPUSCULAR HEMOGLOBIN 28.5 pg (27.0-33.4); MEAN CORPUSCULAR HGB CONC 34.7 g/dL (32.0-36.0); MEAN CORPUSCULAR VOLUME 82 fl (80-97); MONOCYTES % (AUTO) 7.5 % (3-13); PLATELET COUNT 270 10^3/uL (150-450); RED BLOOD COUNT 5.38 10^6/uL (3.72-5.28); RED CELL DISTRIBUTION WIDTH 12.9 % (11.5-14.0); SEGMENTED NEUTROPHILS % (AUTO) 50.3 % (42-78); TOTAL CELLS COUNTED % (AUTO) 100 %; WHITE BLOOD COUNT 7.9 10^3/uL (4.0-10.5)
[2020-08-30 00:29] LABS: ALBUMIN 4.6 g/dL (3.5-5.0); ALKALINE PHOSPHATASE 71 U/L (38-126); ANION GAP 7 (5-19); ASPARTATE AMINO TRANSFERASE 29 U/L (14-36); BILIRUBIN,DIRECT 0.2 mg/dL (0.0-0.4); BILIRUBIN,TOTAL 0.5 mg/dL (0.2-1.3); BLOOD UREA NITROGEN 16 mg/dL (7-20); CALCIUM 9.6 mg/dL (8.4-10.2); CARBON DIOXIDE 32 mmol/L (22-30); CHLORIDE 98 mmol/L (98-107); GLUCOSE 115 mg/dL (75-110); POTASSIUM 3.9 mmol/L (3.6-5.0); TOTAL PROTEIN 7.1 g/dL (6.3-8.2)
--- NOTE | 2020-08-30 07:53 | EKG REPORT ---
SEVERITY:- NORMAL ECG - SINUS RHYTHM : Confirmed by: Zohaib Joshi MD 30-Aug-2020 07:52:14
== END 2020-08-30 00:20 | disposition left against medical advice (07) ==
LOC: ER 22:44
DX: R07.9 Chest pain, unspecified (principal); R25.2 Cramp and spasm; R11.0 Nausea; I10 Essential (primary) hypertension; Z88.1 Allergy status to other antibiotic agents; Z53.20 Procedure and treatment not carried out because of patient's decision for unspecified reasons
CPT/HCPCS: 36415; 71045; 80053; 83735; 84484; 85025; 93005; 93010; 99281; 99285

== ENCOUNTER → 2020-12-19 | Outpatient (CLI) | payer BC ==
--- NOTE | 2020-12-19 14:46 | WOMENS IMAGING REPORT ---
EXAM DESCRIPTION: 3D SCREENING MAMMO BILAT IMAGES COMPLETED DATE/TIME: 12/19/2020 1:39 pm REASON FOR STUDY: ROUTINE SCREENING MAMMOGRAM Z12.31 Z12.31 ENCNTR SCREEN MAMMOGRAM FOR MALIGNANT N EOPLASM OF RONALD COMPARISON: 02/15/2017, 04/15/2018, 09/25/2019. EXAM PARAMETERS: Standard craniocaudal and mediolateral oblique views of each breast recorded using digital acquisition and breast tomosynthesis. Read with the assistance of CAD. .[facility] - [employer] Worker Version 9.2 LIMITATIONS: None. FINDINGS: RIGHT BREAST MASSES: No suspicious masses. CALCIFICATIONS: No new or suspicious calcifications. ARCHITECTURAL DISTORTION: None. ASYMMETRY: There is a developing focal asymmetry within the upper inner quadrant at approximately the 12 to 1 o'clock position, 6 to 7 cm from the nipple (best visualized on CC tomographic image 35 and MLO tomographic image 42) OTHER: No other significant findings. LEFT BREAST MASSES: No suspicious masses. CALCIFICATIONS: No new or suspicious calcifications. ARCHITECTURAL DISTORTION: None. ASYMMETRY: None noted. OTHER: No other significant findings. IMPRESSION: Developing focal asymmetry within the right upper inner quadrant. 0 Incomplete: Needs Additional Imaging Evaluation and/or prior Mammograms for Comparison. BREAST DENSITY: b. There are scattered areas of fibroglandular density. BIRAD: ASSESSMENT: 0 Incomplete: Needs Additional Imaging Evaluation and/or prior Mammograms for C omparison. RECOMMENDATION: RECOMMENDED FOLLOW-UP: Recommend spot compression of the right upper inner breast a t the 1 o'clock position approximately 7 cm from the nipple. ADDITIONAL RECOMMENDATION- focal sonographic evaluation. The patient will be contacted for additional imaging. COMMENT: The patient has been notified of the results by letter per MQSA requirements. Additional no tification policies are in place for contacting patient with suspicious or incomplete findings. Quality ID #225: The [employer] [employer] recommends an annual screening mammogram for women aged 40 years or over. This facility utilizes a reminder system to ensure that all patients receive reminder letters, and/or direct phone calls for appointments. This includes reminders for routine scr eening mammograms, diagnostic mammograms, or other Breast Imaging Interventions when appropriate. Th is patient will be placed in the appropriate reminder system. TECHNICAL DOCUMENTATION: FINDING NUMBER: (1) ASSESSMENT: (1) JOB ID: [id number] [employer]- All Rights Reserved Reading location - IP/workstation name: [email or web address]
== END ==
LOC: WI 13:25
PROVIDERS: ATTEND Advanced Practice Midwife
DX: Z12.31 Encounter for screening mammogram for malignant neoplasm of breast (principal)
CPT/HCPCS: 77063; 77067